=== PATIENT | female | born 2005 | race Caucasian/White ===

== ENCOUNTER 2025-07-14 12:18 | Emergency (ER) | payer BC, SELFPAY ==
[2025-07-14 12:21] VITALS: BP 155/121; PULSE 73; TEMP 36.8; O2SAT 100; BMI 20.4
[2025-07-14 12:35] VITALS: BP 142/84
[2025-07-14] MEDS: BENZOCAINE 30 ML, lidocaine HCL 15 ML MM (13:14)
[2025-07-14] MEDS: HYDROCODONE/ACET 5-325 MG TABLET 1 TAB PO (13:14)
--- NOTE | 2025-07-14 15:10 | ED_ITS ---
HPI HPI - General Adult General Chief complaint: Dental/Oral Stated complaint: DENTAL PAIN Time Seen by Provider: 07/14/25 12:23 Source: patient Mode of arrival: walk-in Limitations: no limitations History of Present Illness HPI narrative: Patient is a 20-year-old female presenting to the emergency department for evaluation of toothache. Patient states that she has had issues with interm ittent pain in the left lower molar for over a month. She is scheduled to get the tooth extracted in 3 weeks from now. She states that over the last 24 hours she has had worsening pain in the left lower molar. She has been taking ibuprofen with some relief. She is not currently on antibiotics. Other than pain in the tooth, she denies any other symptoms. No facial swelling. No fevers or chills. No difficulty breathing or trouble swallowing. No neck swelling. No change in her voice. No abdominal pain, nausea, vomiting, chest pain, shortness of breath. She is otherwise healthy with no chronic medical conditions. Related Data Previous Rx's ?Medication ?Instructions ?Recorded amoxicillin 500 mg capsule 500 mg PO Q8H 7 days #21 ca ps 07/14/25 oxycodone-acetaminophen 5 mg-325 1 tab PO Q8H PRN pain 3 days #7 07/14/25 mg tablet tabs Allergies Allergy/AdvReac Type Severity Reaction Status Date / Time No Known Drug Allergies Allergy Verified 07/14/25 12:21 Opioid HPI Opioid Management Most Recent Opioid Data: Last Pain Scale 10 Today, 13:14 Last DEC Pain Assessment Today, 13:14 Review of Systems ROS Status of ROS 10 or more systems reviewed and unremark able except as noted in history and below PFSH PFSH Social History Little interest or pleasure in doing things: not at all Feeling down, depressed, or hopeless: not at all Exam Narrative Exam Narrative: CONSTITUTIONAL: Tearful and appears to be in acute pain, answering questions and follow commands appropriately. SKIN: Was warm and dry. EYES: Sclerae white. EARS, NOSE, THROAT: Overall good dentition, however the left lower molar appears to have a dental carry. Mild tenderness to percussion over the left lower molar. The gingiva was healthy without palpable fluctuance. No facial swelling. No trismus. No neck swelling. No tenderness of the floor of the mouth. RESPIRATORY: Nonlabored respirations. CARDIOVASCULAR: Normal rate and regular rhythm. There is no S3, S4, murmur, rub. GASTROINTESTINAL: Abdomen is nondistended. MUSCULOSKELETAL: No peripheral edema. NEUROLOGIC: Patient is awake and alert. Facies were symmetrical. Constitutional Vital Signs, click to edit/add: Last Vital Signs Temp 98.2 F 07/14/25 12:21 Pulse 73 07/14/25 12:21 Resp 16 07/14/25 12:21 BP 142/84 H 07/14/25 12:35 Pulse Ox 100 07/14/25 12:21 O2 Del Method Room Air 07/14/25 12:21 Course Vital Signs Vital signs: Vital Signs Temperature 98.2 F 07/14/25 12:21 Pulse Rate 73 07/14/25 12:21 Respiratory Rate 16 07/14/25 12:21 Blood Pressure 155/121 H 07/14/25 12:21 Pulse Oximetry 100 07/14/25 12:21 Oxygen Delivery Method Room Air 07/14/25 12:21 Temperature 98.2 F 07/14/25 12:21 Pulse Rate 73 07/14/25 12:21 Respiratory Rate 16 07/14/25 12:21 Blood Pressure 142/84 H 07/14/25 12:35 Pulse Oximetry 100 07/14/25 12:21 Oxygen Delivery Method Room Air 07/14/25 12:21 Medical Decision Making MDM Narrative Medical decision making narrative: Patient is a 20-year-old female presenting to the emergency department with acute pain of her left lower molar that is scheduled to be extracted in 3 weeks. Her vital signs on arrival are within normal limits. She is afebrile and hemodynamically stable. Examination as noted above. Differential diagnosis includes toothache, periapical abscess, dental carry. She has no facial/neck swelling, trismus, or evidence of severe infection or drainable abscess. She is protecting her airway. Patient will be treated symptomatically with oral [place]. I do believe the patient is stable for discharge. Patient's presentation is most likely consistent with dental infection. They were instructed to follow up with her oral surgeon in 3 weeks as currently scheduled. She also has an appointment with her dentist in 2 days for routine cleaning. Return precautions were given including any new or worsening symptoms. They were given a prescription for amoxicillin 500 mg TID x 7 days. She was also given a prescription for [place] 5 mg x 7 tablets. She was instructed not to drive while taking the [place] - she d oes have a safe ride home today. Patient understands and agrees to the plan. FINAL IMPRESSION: #Acute dental infection of the left lower molar DISPOSITION: Discharged home CONDITION: Good Discharge Plan Discharge Chief Complaint: Dental/Oral Clinical Impression: Toothache Patient Disposition: Home, Self-Care Time of Disposition Decision: 12:59 Condition: Good Mode of Transportation: Private Vehicle Prescriptions / Home Meds: New amoxicillin 500 mg capsule 500 mg PO Q8H 7 Days Qty: 21 0RF oxycodone-acetaminophen 5-325 mg tablet 1 tab PO Q8H PRN (Reason: pain) 3 Days Qty: 7 0RF Print Language: Khmer Instructions: Toothache (ED) Discharge Date/Time: 07/14/25 13:20
== END 2025-07-14 13:20 | disposition home or self-care (01) ==
LOC: ER 13:26
PROVIDERS: Emergency Provider Student in an Organized Health Care Education/Training Program
DX: K04.7 Periapical abscess without sinus (principal); K08.89 Other specified disorders of teeth and supporting structures
CPT/HCPCS: 99283